=== PATIENT | female | born 1950 | race Caucasian/White ===

== ENCOUNTER 2017-11-10 08:05 | Day surgery (SDC) | payer MEDICARE, BC ==
[~2017-11-10 08:05] MED LIST: Metoclopramide 10 MG/2 ML SDV IV PRN; Sodium Chloride 0.9% 1,000 ML IV SCH; Sodium Chloride 0.9% 10 ML Syringe FLUSH PRN
[2017-11-10] MEDS ORDERED: Atropine 0.4 MG/ML SDV ONE (10:35)
[2017-11-10] MEDS ORDERED: Propofol 1,000 MG/100 ML SDV ONE (10:35)
[2017-11-10] MEDS ORDERED: Midazolam 1 MG/ML 5 ML SDV ONE (10:35)
--- NOTE | 2017-11-10 14:33 | OR ---
DATE OF OPERATION: 11/10/2017 PREOPERATIVE DIAGNOSES: Surveillance colonoscopy, prior history of polyps, and positive family history. POSTOPERATIVE DIAGNOSIS: Rectosigmoid mass versus large polyp. OPERATION: Surveillance colonoscopy with cold biopsy. COMPLICATIONS: None. DRAINS: None. SPECIMENS: Rectosigmoid mass. ESTIMATED BLOOD LOSS: Minimal. ANESTHESIA: General propofol anesthesia. INDICATION: Ms. Rascon is a 67-year-old female, here for a routine surveillance colonoscopy. She does have a prior history of polyps and a positive family history for colon cancer. The above-mentioned procedure was explained. The risks, benefits, and complications were explained. The patient understood and agreed and was brought to the operating room. DESCRIPTION OF PROCEDURE: The patient was brought to the operating room, placed in left lateral decubitus position on the operating room table. Satisfactory general propofol anesthesia was administered. We began by performing a rectal examination, which revealed no significant findings. I then placed the endoscope by finger introduction into the rectum and subsequently advanced to the level of the cecum. The cecum was identified by the appendiceal orifice, the ileocecal valve, and cecal strap. Careful evaluation of the colon was then performed on withdrawal, which revealed no significant finding except for at approximately 17 to 20 cm from the anal verge. There was a rectosigmoid mass, which appeared to be cratered and adenomatous. This was biopsied at multiple sites by cold biopsy forceps and these were subsequently retrieved. The polyp versus mass appeared quite large and encroached on approximately 60% of the circumference and appeared to be semipedunculated versus sessile. The remainder of the colon was within normal limits. Retroflexion was performed in the rectum and this was normal as well. The colon was subsequently decompressed and the endoscope was subsequently withdrawn. Await pathology results. The patient will require CT scan of the abdomen and pelvis, and the patient was then awoke in the OR and taken to the PACU for recovery. There were no complications. Instrument count was correct. The patient tolerated the procedure well. GAGAN/DENISE /[id number]
== END 2017-11-10 12:50 | disposition home or self-care (01) ==
LOC: LB.SDS 08:05
PROVIDERS: ATTEND Surgery
DX: Z12.11 Encounter for screening for malignant neoplasm of colon (principal); D12.7 Benign neoplasm of rectosigmoid junction; Z86.010 Personal history of colon polyps; Z80.0 Family history of malignant neoplasm of digestive organs; Z88.2 Allergy status to sulfonamides
CPT/HCPCS: J0461; J2250; J3490; J7040; J7050

== ENCOUNTER 2019-09-18 09:31 | Emergency (ER) | payer MEDICARE ==
[2019-09-18] MEDS ORDERED: Nitroglycerin 0.4 MG Tab.SL ONE (10:00)
--- NOTE | 2019-09-18 10:21 | EDM.PDOC ---
ED HPI GENERAL MEDICAL PROBLEM - General Chief Complaint: Cardiovascular Problem Stated Complaint: CHEST TIGHTNESS, HEADACHE Time Seen by Provider: 09/18/19 10:10 Source of Information: Reports: Patient, Family, RN History Limitations: Reports: No Limitations - History of Present Illness INITIAL COMMENTS - FREE TEXT/NARRATIVE: 68 yo female presents with tightness/pressure to chest today, started this am around 730 when watching TV. States she has been having some oral blisters, feeling of exudate to roof of mouth, and some head pressure and has been seen in the clinic for this since May. She did have some labs then and was trialed on medication for shingles and symptoms have persisted. She did take ASA 325 mg this am for the headache and chest pressure. EKG today and NSR. Saline lock started, BP 151/93. Nitro 1 tab SL given. States no change in chest pressure after the nitro. No shortness of breath and no cough. 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 Denies: Dyspnea on Exertion, Edema GI/Abdominal: Reports: No Symptoms Musculoskeletal: Reports: No Symptoms Neurological: Reports: Dizziness. Denies: Headache ED EXAM, GENERAL - Physical Exam Exam: See Below Exam Limited By: No Limitations General Appearance: Alert, No Apparent Distress Ears: Hearing Grossly Normal Throat/Mouth: Normal Inspection, Normal Lips, No Airway Compromise Head: Atraumatic, Normocephalic Neck: Normal Inspection, Supple, Non-Tender, Full Range of Motion Respiratory/Chest: No Respiratory Distress, Lungs Clear, Normal Breath Sounds Cardiovascular: Regular Rate, Rhythm, No Edema GI/Abdominal: Normal Bowel Sounds, Soft, Non-Tender Extremities: Normal Inspection, Normal Range of Motion, Non-Tender, No Pedal Edema Neurological: Alert, Oriented, Normal Cognition Psychiatric: Normal Affect, Normal Mood Skin Exam: Warm, Dry, Normal Color Course - Vital Signs Last Recorded V/S: Last Vital Signs Temp 98.6 F 09/18/19 09:31 Pulse 70 09/18/19 10:54 Resp 16 09/18/19 10:54 BP 141/81 H 09/18/19 10:54 Pulse Ox 97 09/18/19 10:54 - Orders/Labs/Meds Orders: Active Orders 24 hr Category Date Time Status EKG Documentation Completion [RC] ASDIRECTED Care 09/18/19 09:47 Active Labs: Laboratory Tests 09/18/19 09/18/19 09/18/19 Range/Units 10:10 10:10 10:10 WBC 4.3 D (4.0-11.0) K/uL RBC 4.13 (3.80-5.80) M/uL Hgb 13.0 (11.5-16.5) g/dL Hct 38.5 (37.0-47.0) % MCV 93 (76-96) fL MCH 31.5 (27.0-32.0) pg MCHC 33.8 (31.0-35.0) g/dL RDW 12.6 (11.0-16.0) % Plt Count 203 (150-500) K/uL MPV 10.0 (6.0-10.0) fL Neut % (Auto) 58.9 (45.0-70.0) % Lymph % (Auto) 27.7 (20.0-40.0) % [place] % (Auto) 9.5 (3.0-10.0) % Eos % (Auto) 3.2 (1.0-5.0) % Baso % (Auto) 0.7 H (0.0-0.5) % Neut # (Auto) 2.55 (2.00-7.50) K/uL Lymph # (Auto) 1.20 L (1.50-4.00) K/uL [place] # (Auto) 0.41 (0.20-0.80) K/uL Eos # (Auto) 0.14 (0.04-0.40) K/uL Baso # (Auto) 0.03 (0.02-0.10) K/uL ESR 3 (0-30) mm/hr Sodium 142 (136-145) mmol/L Potassium 3.8 (3.5-5.1) mmol/L Chloride 105 (98-107) mmol/L Carbon Dioxide 27.7 (21.0-32.0) mmol/L Anion Gap 13.1 (5.0-15.0) mmol/L BUN 17 (8-26) mg/dL Creatinine 0.70 (0.55-1.02) mg/dL Est Cr Clr Drug Dosing 70.18 mL/min Estimated GFR (MDRD) > 60 (>60) MLS/MIN BUN/Creatinine Ratio 24.3 (6-25) Glucose 86 (74-100) mg/dL Calcium 8.7 (8.5-10.1) mg/dL Troponin I < 0.017 (0.000-0.060) ng/mL C-Reactive Protein (0.0-3.0) mg/L 09/18/19 Range/Units 10:10 WBC (4.0-11.0) K/uL RBC (3.80-5.80) M/uL Hgb (11.5-16.5) g/dL Hct (37.0-47.0) % MCV (76-96) fL MCH (27.0-32.0) pg MCHC (31.0-35.0) g/dL RDW (11.0-16.0) % Plt Count (150-500) K/uL MPV (6.0-10.0) fL Neut % (Auto) (45.0-70.0) % Lymph % (Auto) (20.0-40.0) % [place] % (Auto) (3.0-10.0) % Eos % (Auto) (1.0-5.0) % Baso % (Auto) (0.0-0.5) % Neut # (Auto) (2.00-7.50) K/uL Lymph # (Auto) (1.50-4.00) K/uL [place] # (Auto) (0.20-0.80) K/uL Eos # (Auto) (0.04-0.40) K/uL Baso # (Auto) (0.02-0.10) K/uL ESR (0-30) mm/hr Sodium (136-145) mmol/L Potassium (3.5-5.1) mmol/L Chloride (98-107) mmol/L Carbon Dioxide (21.0-32.0) mmol/L Anion Gap (5.0-15.0) mmol/L BUN (8-26) mg/dL Creatinine (0.55-1.02) mg/dL Est Cr Clr Drug Dosing mL/min Estimated GFR (MDRD) (>60) MLS/MIN BUN/Creatinine Ratio (6-25) Glucose (74-100) mg/dL Calcium (8.5-10.1) mg/dL Troponin I (0.000-0.060) ng/mL C-Reactive Protein < 0.5 (0.0-3.0) mg/L Meds: Medications Discontinued Medications Generic Name Dose Route Start Last Admin Trade Name Freq PRN Reason Stop Dose Admin Acetaminophen 650 mg 09/18/19 11:14 09/18/19 11:15 Tylenol PO 09/18/19 11:15 650 mg NOW ONE Administration Acetaminophen Confirm 09/18/19 11:22 Tylenol Administered 09/18/19 11:23 Dose 650 mg .ROUTE .STK-MED ONE Nitroglycerin 0.4 mg 09/18/19 10:39 09/18/19 10:12 Nitrostat SL 0.4 mg Q5M PRN Administration Chest Pain Departure - Departure Time of Disposition: 11:40 Disposition: Home, Self-Care 01 Condition: Good Clinical Impression: Acute sinus infection, Atypical chest pain Prescriptions: Amoxicillin/Clavulanate K [Augmentin 875-125 MG] 1 tab PO BID 10 Days #20 tablet Instructions: Amoxicillin; Clavulanic Acid tablets, Sinusitis, Adult, Easy-to- Read, Nitroglycerin sublingual tablets Referrals: PCP,None [Primary Care Provider] - Forms: ED Department Discharge Additional Instructions: Discharge home. Augmentin 1 tablet 2 times a day by mouth for 10 days. Take with food or milk. Use a probiotic or yogurt while taking this antibiotic and for a week after. Antibiotic electronically sent over to [facility] Follow up in the clinic with Michelle Salas on 09/23/19 at 10:00. Tylenol and ibuprofen for headache, take as directed. Drink plenty of fluids. Nitro sublingual tablet-take 1 tablet as needed for chest pain. May take one tablet every 5 minutes if pain persists, call the ER. Call or return to the ER if you have any questions or concerns. Sepsis Event Note - Evaluation Sepsis Screening Result: No Definite Risk - Focused Exam Vital Signs: Vital Signs Temp Pulse Resp BP BP Pulse Ox 09/18/19 10:54 70 16 141/81 H 97 09/18/19 10:38 68 18 138/72 98 09/18/19 10:30 78 16 146/73 H 98 09/18/19 10:12 166/87 H 09/18/19 10:10 85 18 151/93 H 97 09/18/19 10:07 74 18 166/87 H 98 09/18/19 10:06 76 18 156/80 H 98 09/18/19 09:50 74 18 155/80 H 98 09/18/19 09:43 76 160/76 H 99 09/18/19 09:31 98.6 F 82 18 169/75 H 100 Date Exam was Performed: 09/18/19 Time Exam was Performed: 16:43 - My Orders Last 24 Hours: My Active Orders 09/18/19 09:47 EKG Documentation Completion [RC] ASDIRECTED - Assessment/Plan Last 24 Hours: My Active Orders 09/18/19 09:47 EKG Documentation Completion [RC] ASDIRECTED Plan: Counseled on acute sinus infection. Recommend Claritin or Cathy daily X 10 days. Rx for Augmentin bid X 10 days. Tylenol as needed for H/A and use of moist heat as needed for neck and head pain. RTC next week for follow-up. Counseled on atypical chest pain/pressure, relieved with Nitro. Monitor BP at home. Counseled on use of nitro at home if pain returns and may take q 5 min if chest pain, repeat X 2 and if no relief, call 911 and Return to ER.
[2019-09-18] MEDS ORDERED: Nitroglycerin 0.4 MG Tab.SL SL PRN (10:39)
[2019-09-18] MEDS ORDERED: Acetaminophen 325 MG Tab PO ONE (11:14)
[2019-09-18] MEDS ORDERED: Acetaminophen 325 MG Tab ONE (11:22)
== END 2019-09-18 11:40 | disposition home or self-care (01) ==
LOC: LB.ED 09:31
DX: R07.89 Other chest pain (principal); J01.90 Acute sinusitis, unspecified; Z88.2 Allergy status to sulfonamides
CPT/HCPCS: 36415; 80048; 84484; 85025; 85651; 86140; 87430; 93005; 99285; A9270

== ENCOUNTER 2019-10-04 09:12 | Emergency (ER) | payer MEDICARE ==
[2019-10-04] MEDS: LORazepam 1 MG Tab PO ONE (10:02)
[2019-10-04] MEDS ORDERED: LORazepam 1 MG Tab ONE (10:08)
--- NOTE | 2019-10-05 07:30 | EDM.PDOC ---
ED HPI GENERAL MEDICAL PROBLEM - General Chief Complaint: General Stated Complaint: RACING HEART Time Seen by Provider: 10/04/19 09:30 - History of Present Illness INITIAL COMMENTS - FREE TEXT/NARRATIVE: John presents with a complex history of ongoing health concerns. She has been to several providers over the last couple of months. Her main presentation today, was to be cleared to drive to [place], in order to get some lab tests ordered by rheumatology. 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 Failed multiple rx and ENT advised rheum consult, and this lead to a cardiology referral for palpitations. She actually is wearing a monitor now and has continued to have sx's. She relates a tightness in the muscles of her neck, upper back, and, to a lesser degree, of her chest. She denies exertional or pleuritic component. No fever, cough, or headache. No provoking factors identified, but better with aspirin. She has taken this up to three times a day. No nausea, diaphoresis, or SOB. John endorses anxiety. No GERD or dyspepsia. concerned for Lyme. They are requesting this to be tested, with mention of Western blot by her daughter. Apparently John tested negative for mya albicans sensitivity. 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 ED EXAM, GENERAL - Physical Exam Exam: See Below Exam Limited By: No Limitations General Appearance: Alert, WD/WN, No Apparent Distress Eye Exam: Bilateral Eye: EOMI Ears: Normal External Exam, Hearing Grossly Normal Nose: Normal Inspection Throat/Mouth: Normal Inspection, Normal Lips, Normal Voice Head: Atraumatic, Normocephalic Neck: Normal Inspection, Supple, Non-Tender, Full Range of Motion Respiratory/Chest: No Respiratory Distress, Lungs Clear, Normal Breath Sounds, Chest Non-Tender Cardiovascular: Regular Rate, Rhythm, No Gallop, No Murmur, No Rub GI/Abdominal: Normal Bowel Sounds, Soft, Non-Tender Back Exam: Full Range of Motion, Muscle Spasm (bilateral trapezius with multiple trigger points) Extremities: Normal Inspection, Normal Range of Motion, Non-Tender, No Pedal Edema, Normal Capillary Refill Neurological: Alert, Oriented, CN II-XII Intact, Normal Cognition, No Motor/ Sensory Deficits Psychiatric: Normal Affect, Anxious Skin Exam: Warm, Dry, Intact Lymphatic: No Adenopathy EKG INTERPRETATION EKG Date: 10/04/19 EKG Interpretation Comments: No acute ST segment changes Course - Vital Signs Last Recorded V/S: Last Vital Signs Temp 98.2 F 10/04/19 09:30 Pulse 72 10/04/19 10:21 Resp 16 10/04/19 10:21 BP 95/60 10/04/19 10:21 Pulse Ox 99 10/04/19 10:21 - Orders/Labs/Meds Orders: Active Orders 24 hr Category Date Time Status EKG Documentation Completion [RC] ASDIRECTED Care 10/04/19 09:46 Active YOUSIF W/RFX TO ALL IF POSITIVE Stat Lab 10/04/19 11:10 Received LYME, TOTAL AB TEST/REFLEX Stat Lab 10/04/19 10:54 Received VITAMIN D, 25-HYDROXY Stat Lab 10/04/19 11:10 Received Labs: Laboratory Tests 10/04/19 10/04/19 10/04/19 Range/Units 10:00 10:00 11:10 WBC 4.8 (4.0-11.0) K/uL RBC 4.11 (3.80-5.80) M/uL Hgb 12.9 (11.5-16.5) g/dL Hct 37.7 (37.0-47.0) % MCV 92 (76-96) fL MCH 31.4 (27.0-32.0) pg MCHC 34.2 (31.0-35.0) g/dL RDW 12.4 (11.0-16.0) % Plt Count 195 (150-500) K/uL MPV 9.9 (6.0-10.0) fL Neut % (Auto) 67.2 (45.0-70.0) % Lymph % (Auto) 21.7 (20.0-40.0) % [place] % (Auto) 8.8 (3.0-10.0) % Eos % (Auto) 1.7 (1.0-5.0) % Baso % (Auto) 0.6 H (0.0-0.5) % Neut # (Auto) 3.19 (2.00-7.50) K/uL Lymph # (Auto) 1.03 L (1.50-4.00) K/uL [place] # (Auto) 0.42 (0.20-0.80) K/uL Eos # (Auto) 0.08 (0.04-0.40) K/uL Baso # (Auto) 0.03 (0.02-0.10) K/uL ESR 3 (0-30) mm/hr Sodium 140 (136-145) mmol/L Potassium 3.9 (3.5-5.1) mmol/L Chloride 105 (98-107) mmol/L Carbon Dioxide 27.3 (21.0-32.0) mmol/L Anion Gap 11.6 (5.0-15.0) mmol/L BUN 15 (8-26) mg/dL Creatinine 0.69 (0.55-1.02) mg/dL Est Cr Clr Drug Dosing 72.64 mL/min Estimated GFR (MDRD) > 60 (>60) MLS/MIN BUN/Creatinine Ratio 21.7 (6-25) Glucose 97 (74-100) mg/dL Calcium 8.5 (8.5-10.1) mg/dL Total Bilirubin 0.3 (0.0-1.0) mg/dL AST 18 (15-37) U/L ALT 22 (12-78) U/L Alkaline Phosphatase 65 (46-116) U/L Creatine Kinase (21-232) U/L Troponin I < 0.017 (0.000-0.060) ng/mL C-Reactive Protein (0.0-3.0) mg/L Total Protein 6.4 (6.4-8.2) g/dL Albumin 3.7 (3.4-5.0) g/dL Globulin 2.7 (2.2-4.2) g/dL Albumin/Globulin Ratio 1.4 (0.8-2.0) 10/04/19 Range/Units 11:10 WBC (4.0-11.0) K/uL RBC (3.80-5.80) M/uL Hgb (11.5-16.5) g/dL Hct (37.0-47.0) % MCV (76-96) fL MCH (27.0-32.0) pg MCHC (31.0-35.0) g/dL RDW (11.0-16.0) % Plt Count (150-500) K/uL MPV (6.0-10.0) fL Neut % (Auto) (45.0-70.0) % Lymph % (Auto) (20.0-40.0) % [place] % (Auto) (3.0-10.0) % Eos % (Auto) (1.0-5.0) % Baso % (Auto) (0.0-0.5) % Neut # (Auto) (2.00-7.50) K/uL Lymph # (Auto) (1.50-4.00) K/uL [place] # (Auto) (0.20-0.80) K/uL Eos # (Auto) (0.04-0.40) K/uL Baso # (Auto) (0.02-0.10) K/uL ESR (0-30) mm/hr Sodium (136-145) mmol/L Potassium (3.5-5.1) mmol/L Chloride (98-107) mmol/L Carbon Dioxide (21.0-32.0) mmol/L Anion Gap (5.0-15.0) mmol/L BUN (8-26) mg/dL Creatinine (0.55-1.02) mg/dL Est Cr Clr Drug Dosing mL/min Estimated GFR (MDRD) (>60) MLS/MIN BUN/Creatinine Ratio (6-25) Glucose (74-100) mg/dL Calcium (8.5-10.1) mg/dL Total Bilirubin (0.0-1.0) mg/dL AST (15-37) U/L ALT (12-78) U/L Alkaline Phosphatase (46-116) U/L Creatine Kinase 23 (21-232) U/L Troponin I (0.000-0.060) ng/mL C-Reactive Protein < 0.5 (0.0-3.0) mg/L Total Protein (6.4-8.2) g/dL Albumin (3.4-5.0) g/dL Globulin (2.2-4.2) g/dL Albumin/Globulin Ratio (0.8-2.0) Meds: Medications Discontinued Medications Generic Name Dose Route Start Last Admin Trade Name Kyara PRN Reason Stop Dose Admin Lorazepam 1 mg 10/04/19 09:43 10/04/19 10:02 Ativan PO 10/04/19 09:44 1 mg ONETIME ONE Administration Lorazepam Confirm 10/04/19 10:08 Ativan Administered 10/04/19 10:09 Dose 1 mg .ROUTE .STK-MED ONE Departure - Departure Time of Disposition: 11:00 Disposition: Home, Self-Care 01 Clinical Impression: Palpitations - Discharge Information Instructions: Palpitations, [id number] Referrals: PCP,None [Primary Care Provider] - Forms: ED Department Discharge Additional Instructions: Discharge home. Labs and EKG were normal in the ER today. Flexeril 10mg by mouth 1 tablet 3 times a day as needed for muscle spasms. Referral for date puller, they will call you with an appointment, Stress test and an echo. Follow up in the clinic with Dr. Daniel. Sepsis Event Note - Evaluation Sepsis Screening Result: No Definite Risk - My Orders Last 24 Hours: My Active Orders 10/04/19 09:46 EKG Documentation Completion [RC] ASDIRECTED 10/04/19 10:54 LYME, TOTAL AB TEST/REFLEX Stat - Assessment/Plan Last 24 Hours: My Active Orders 10/04/19 09:46 EKG Documentation Completion [RC] ASDIRECTED 10/04/19 10:54 LYME, TOTAL AB TEST/REFLEX Stat Assessment:: Palpitations- discussed likely premature beats Upper torso tightness- seems to carry a fair degree of tension and I suspect thus us mainly myofascial in etiology burning mouth syndrome- lab was kind enough to run the tests ordered by rheumatology per pt request obviating drive to [place] and back Plan: Responded significantly to ativan and had a nice discussion about further coordination of care after reassuring I think it will be safe to continue outpatient management with recommendation for stress testing and cardiology consult as planned. Offered gabapentin Rx to help palliate her sx's while she continues with her w/u and she will recheck with her primary md as well
[2019-10-08 09:12] LABS: ANA DIRECT Negative (Negative)
== END 2019-10-04 11:15 | disposition home or self-care (01) ==
LOC: LB.ED 09:12
DX: R00.2 Palpitations (principal); Z88.2 Allergy status to sulfonamides
CPT/HCPCS: 36415; 80053; 82306; 82550; 84484; 85025; 85651; 86038; 86140; 93005; 99283; 99285-25; A9270-GY

== ENCOUNTER 2022-06-02 11:14 | Day surgery (SDC) | payer MEDICARE ==
[~2022-06-02 11:14] MED LIST changes: -Sodium Chloride 0.9% 10 ML Syringe FLUSH PRN
== END 2022-06-02 15:34 | disposition home or self-care (01) ==
LOC: LB.SDS 11:14
PROVIDERS: ATTEND Surgery
DX: Z12.11 Encounter for screening for malignant neoplasm of colon (principal); K63.89 Other specified diseases of intestine; Z86.010 Personal history of colon polyps; Z98.0 Intestinal bypass and anastomosis status; Z88.2 Allergy status to sulfonamides; Z79.899 Other long term (current) drug therapy
CPT/HCPCS: G0105; J2704; J7030